=== PATIENT | female | born 1975 | race Caucasian/White ===

== ENCOUNTER 2020-01-28 23:43 | Emergency (ER) | payer SELFPAY ==
[~2020-01-28] VITALS: Ht 167.6 cm; Wt 109.1 kg
[2020-01-29 01:59] VITALS: BP 138/74; PULSE 80; TEMP 98.8
== END 2020-01-29 01:54 | disposition home or self-care (01) ==
LOC: COL.ER 23:43
DX: M54.6 Pain in thoracic spine (principal); X50.9XXA Other and unspecified overexertion or strenuous movements or postures, initial encounter; Z85.3 Personal history of malignant neoplasm of breast; Z88.2 Allergy status to sulfonamides; Z87.891 Personal history of nicotine dependence

== ENCOUNTER 2020-07-11 17:15 | Emergency (ER) | payer OTHER ==
[~2020-07-11] VITALS: Ht 165.1 cm; Wt 118.6 kg
[2020-07-11 17:19] VITALS: TEMP 99.6
[2020-07-11 17:55] LABS: GRAN % 64.2 % (42.2-75.2); HEMATOCRIT 42.2 % (37.0-47.0); HEMOGLOBIN 13.8 g/dl (12.5-16.0); LYMPH # 1.1 (1.2-3.4); LYMPH % 23.8 % (20.0-51.0); MEAN CELL VOLUME 91 fl (80.0-100.0); MEAN CORPUSCULAR HEMOGLOBIN 30 pg (27.0-31.0); MEAN CORPUSCULAR HGB CONC 33 g/dl (33.0-37.0); MEAN PLATELET VOLUME 8.6 fl (7.4-10.4); MONO # 0.6 (0.1-0.6); MONO % 11.8 % (1.7-9.3); PLATELET COUNT 166 K/mm3 (130-400); RED BLOOD COUNT 4.63 M/mm3 (4.10-5.30); REDCELL DISTRIBUTION WIDTH-CV 13.2 % (11.5-14.5)
[2020-07-11 18:02] LABS: INR 1.1 (0.8-3.0); PROTHROMBIN TIME 12.7 SECONDS (9.7-12.8)
[2020-07-11 18:05] LABS: PARTIAL THROMBOPLASTIN TIME 29.4 SECONDS (26.0-37.0)
[2020-07-11 18:10] LABS: ALANINE AMINOTRANSFERASE 28 U/L (4-34); ALBUMIN 3.9 gm/dL (3.5-5.0); ALKALINE PHOSPHATASE 82 U/L (50-136); ANION GAP 9 mmol/L (7-16); AST,SGOT 58 U/L (15-37); BILIRUBIN,TOTAL 0.4 mg/dL (0.0-1.0); BLOOD UREA NITROGEN 17 mg/dL (7-17); CALCIUM 8.5 mg/dL (8.4-10.2); CARBON DIOXIDE 24 mmol/L (22-30); CHLORIDE 103 mmol/L (98-107); GLUCOSE 128 mg/dL (74-106); LIPASE 409 U/L (23-300); POTASSIUM 3.9 mmol/L (3.4-5.0); SODIUM 136 mmol/L (137-145); TOTAL PROTEIN 7.3 gm/dL (6.4-8.2)
[2020-07-11 18:23] LABS: TROPONIN-I < 0.012 ng/mL (0.000-0.035)
[2020-07-11 19:54] LABS: MUCOUS Present /lpf; PH 5 (5-8); SQUAMOUS EPITHELIAL 0-2 /hpf; URINE APPEARANCE Clear; URINE BACTERIA None Seen /hpf; URINE BILIRUBIN Negative (NEGATIVE); URINE BLOOD 1+ (NEGATIVE); URINE COLOR Yellow; URINE GLUCOSE Negative (NEGATIVE); URINE KETONE Negative (NEGATIVE); URINE LEUKOCYTE ESTERASE Trace (NEGATIVE); URINE NITRATE Negative (NEGATIVE); URINE PROTEIN(semi-quant) Negative (NEGATIVE); URINE RBC 0-2 /hpf; URINE UROBILINOGEN Negative (NEGATIVE); URINE WBC 0-2 /hpf
[2020-07-11 20:30] LABS: COLLECTION METHOD CLEAN CATCH
[2020-07-12] VITALS: BP 86/64; PULSE 81
== END 2020-07-12 | disposition home or self-care (01) ==
LOC: COL.ER 17:15
PROVIDERS: Emergency Medicine
DX: R00.2 Palpitations (principal); C79.81 Secondary malignant neoplasm of breast; I48.91 Unspecified atrial fibrillation; Z88.2 Allergy status to sulfonamides; Z87.891 Personal history of nicotine dependence
CPT/HCPCS: J7040; Q9967

== ENCOUNTER → 2021-03-13 | Outpatient (CLI) | payer MEDICAID | LOC: COL.RAD 13:45 | DX: E27.9 Disorder of adrenal gland, unspecified (principal); R91.8 Other nonspecific abnormal finding of lung field; C50.919 Malignant neoplasm of unspecified site of unspecified female breast | CPT/HCPCS: Q9967 ==

== ENCOUNTER → 2021-04-18 | Outpatient (CLI) | payer MEDICAID | LOC: COL.RAD 10:30 | DX: R19.07 Generalized intra-abdominal and pelvic swelling, mass and lump (principal) ==

== ENCOUNTER 2021-10-28 19:11 | Emergency (ER) | payer MEDICAID | END 2021-10-28 19:56 | disposition home or self-care (01) | LOC: COL.ER 19:11 | DX: R52 Pain, unspecified (principal) ==